=== PATIENT | male | born 1945 | race Caucasian/White ===

== ENCOUNTER 2017-10-10 19:00 | Emergency (ER) | payer MEDICARE ==
[~2017-10-10] VITALS: Ht 175.3 cm; Wt 104.1 kg
[2017-10-10] MEDS ORDERED: MECLIZINE CHEWABLE 25 MG TAB ONE (19:04)
[2017-10-10 19:07] VITALS: BP 157/76
[2017-10-10 19:33] LABS: BASOPHILS # (AUTO) 0.02 x10^3/uL (0-0.1); BASOPHILS % (AUTO) 0 % (0-1); EOSINOPHILS # (AUTO) 0.26 x10^3/uL (0-0.4); EOSINOPHILS % (AUTO) 3 % (1-7); LYMPHOCYTES # (AUTO) 1.37 x10^3/uL (1-3.4); LYMPHOCYTES % (AUTO) 16 % (22-44); MD NO; MEAN CORPUSCULAR HEMOGLOBIN 33.4 pg (27.5-34.5); MEAN CORPUSCULAR HGB CONC 34.7 g/dL (33.2-36.2); MEAN CORPUSCULAR VOLUME 96.2 fL (81-97); MEAN PLATELET VOLUME 8.5 fL (7.4-10.4); MONOCYTES % (AUTO) 6 % (2-9); NEUTROPHILS # (AUTO) 6.28 x10^3/uL (1.8-6.8); NEUTROPHILS % (AUTO) 75 % (42-75); PLATELET COUNT 144 x10^3/uL (130-400); RED BLOOD COUNT 4.76 x10^6/uL (4.38-5.82); RED CELL DISTRIBUTION WIDTH 13.3 % (9.4-14.8)
[2017-10-10 19:38] LABS: INTERNATIONAL NORMALIZED RATIO 1.03 (0.93-1.1); PROTHROMBIN TIME 10.7 Seconds (9.6-11.5)
[2017-10-10 19:39] LABS: ALANINE AMINOTRANSFERASE 22 U/L (12-78); ALBUMIN 3.8 g/dL (3.4-5.0); ANION GAP 7 mmol/L (5-15); CALCIUM 8.5 mg/dL (8.5-10.1); CHLORIDE 107 mmol/L (98-107); CREATININE 0.89 mg/dL (0.7-1.3)
[2017-10-10 19:42] LABS: ALKALINE PHOSPHATASE 75 U/L (45-117); BILIRUBIN,TOTAL 2.3 mg/dL (0.2-1.0); TOTAL PROTEIN 7.2 g/dL (6.4-8.2)
[2017-10-10] MEDS ORDERED: ENOXAPARIN 60 MG/0.6 ML ONE (20:23)
[2017-10-10] MEDS ORDERED: ENOXAPARIN 40 MG/0.4 ML ONE (20:23)
[2017-10-10] MEDS ORDERED: ENOXAPARIN 100 MG/ML SQ ONE (20:30)
== END 2017-10-10 20:50 | disposition home or self-care (01) ==
LOC: ED 20:40
DX: I82.412 Acute embolism and thrombosis of left femoral vein (principal); I82.432 Acute embolism and thrombosis of left popliteal vein; I10 Essential (primary) hypertension
CPT/HCPCS: 36415; 80053; 85025; 85610; 85730; 99284

== ENCOUNTER 2017-12-30 11:53 | Observation (INO) | payer MEDICARE ==
[~2017-12-30] VITALS: Ht 172.7 cm; Wt 100.6 kg
--- NOTE | 2017-12-30 11:58 | NUR ---
PT BIB EMS FOR RIGHT LEG PAIN. PER EMS, PT HAS HAD RT LEG PAIN FOR 2 MONTHS WITH INCREASE IN PAIN IN LAST TWO WEEKS. PER PT, "I AM HERE BECAUSE THE PAIN SPECIALIST TOLD ME TO HAVE MY PAIN MEDICATION LOOKED AT TO SEE WHY THEY AREN'T HELPING. NADN. ALL SAFETY MEASURES IN PLACE. PT CONNECTED TO NIBP AND CONTINOUS PULSE OX.
[2017-12-30] MEDS ORDERED: MORPHINE SULFATE 4 MG/ML, 1ML ONE (12:28)
[2017-12-30] MEDS ORDERED: MORPHINE SULFATE 4 MG/ML, 1ML IVPush PRN (12:30)
[2017-12-30] MEDS ORDERED: SODIUM CHLORIDE FLUSH 10ML SYR IVF ONE (12:30)
[2017-12-30 12:42] LABS: BASOPHILS # (AUTO) 0.04 x10^3/uL (0-0.1); BASOPHILS % (AUTO) 1 % (0-1); EOSINOPHILS # (AUTO) 0.11 x10^3/uL (0-0.4); EOSINOPHILS % (AUTO) 2 % (1-7); LYMPHOCYTES # (AUTO) 1.25 x10^3/uL (1-3.4); LYMPHOCYTES % (AUTO) 18 % (22-44); MD NO; MEAN CORPUSCULAR HEMOGLOBIN 34.1 pg (27.5-34.5); MEAN CORPUSCULAR HGB CONC 34.1 g/dL (33.2-36.2); MEAN CORPUSCULAR VOLUME 100.1 fL (81-97); MEAN PLATELET VOLUME 8.6 fL (7.4-10.4); MONOCYTES # (AUTO) 0.49 x10^3/uL (0.2-0.8); MONOCYTES % (AUTO) 7 % (2-9); NEUTROPHILS # (AUTO) 4.94 x10^3/uL (1.8-6.8); NEUTROPHILS % (AUTO) 72 % (42-75); PLATELET COUNT 148 x10^3/uL (130-400); RED BLOOD COUNT 4.59 x10^6/uL (4.38-5.82)
[2017-12-30 12:51] LABS: INTERNATIONAL NORMALIZED RATIO 1.04 (0.93-1.1); PROTHROMBIN TIME 10.8 Seconds (9.6-11.5)
[2017-12-30 12:54] LABS: ALBUMIN 3.6 g/dL (3.4-5.0); ANION GAP 7 mmol/L (5-15); CALCIUM 8.8 mg/dL (8.5-10.1); CHLORIDE 113 mmol/L (98-107); CREATININE 0.95 mg/dL (0.7-1.3)
--- NOTE | 2017-12-30 12:56 | NUR ---
WENT TO PROVIDE PT PAIN MEDICATION AND PIV PER EMAR AND MD ORDERS. PT DECLINES PIV AND PAIN MEDICATION AT THIS TIME. PT REQUESTES A PILLOW UNDER RIGHT LEG FOR PAIN RELIEF, PT STATES, "IF I PUT A PILLOW UNDER MY LEG AND I DON'T MOVE I HAVE NO PAIN." ASSISTED PT WITH PLACING PILLOW UNDER LEG. ALL SAFETY MEASURES IN PLACE. PT CONNECTED TO NIBP AND CONTINOUS PULSE OX. NO OTHER NEEDS REQUESTED AT THIS TIME.
[2017-12-30] MEDS ORDERED: FLUTICASONE NS (13:06)
[2017-12-30] MEDS ORDERED: ACETAMINOPHEN PO (13:06)
[2017-12-30] MEDS ORDERED: CODEIN PO (13:06)
[2017-12-30] MEDS ORDERED: ALLO300T PO (13:09)
[2017-12-30] MEDS ORDERED: [UNRECOGNIZED DRUG - OTHER] (13:09)
[2017-12-30] MEDS ORDERED: BENA1TAB10 PO (13:09)
[2017-12-30] MEDS ORDERED: APIX5TAB PO (13:09)
[2017-12-30] MEDS ORDERED: INDO50CA5 PO (13:09)
[2017-12-30] MEDS ORDERED: TAMS0.4C2 PO (13:09)
[2017-12-30] MEDS ORDERED: VOLTAREN TP (13:12)
--- NOTE | 2017-12-30 13:26 | NUR ---
BREAK RN - PT RESTING COMFORTABLY ON GURNEY. DENIES NEED FOR PAIN MEDICATION AT THIS TIME. PROVIDED WITH URINAL. ALL OTHER CONCERNS ADRESSED. NADN. PT AWAITING TO GO TO CT.
--- NOTE | 2017-12-30 14:12 | NUR ---
PT RESTING ON GURNEY. PT CONNECTED TO NIBP AND CONTINOUS PULSE OX. PT STATES, "I DON'T HAVE ANY PAIN UNLESS I MOVE. I HAD A LOT OF PAIN WHEN I MOVED AND WAS IN THE CT MACHINE." NO NEEDS REQUESTED AT THIS TIME. ALL SAFETY MEASURES IN PLACE. JULIO CESARN.
[2017-12-30] MEDS ORDERED: GABA300C10 PO (15:12)
--- NOTE | 2017-12-30 15:12 | NUR ---
PT STATES HE SEES [facility] THOR DORADO PA-C [phone] FAX [phone].
[2017-12-30] MEDS ORDERED: APAP/CODEINE 300/60MG TABLET PO PRN ×2 (16:00→21:00)
[2017-12-30] MEDS ORDERED: LABETALOL 5MG/ML, 20ML IVPush PRN (16:00)
[2017-12-30] MEDS ORDERED: ACETAMINOPHEN 325 MG TABLET PO PRN (16:00)
[2017-12-30] MEDS ORDERED: BISACODYL 10 MG SUPP PR PRN (16:00)
[2017-12-30] MEDS ORDERED: methylPREDNISolone 4mg DOSE PACK PO SCH (16:00)
[2017-12-30] MEDS ORDERED: ONDANSETRON 2MG/ML, 2ML IVPush PRN (16:00)
[2017-12-30] MEDS ORDERED: POLYETHYLENE GLYCOL 17 GM PACKET PO PRN (16:00)
[2017-12-30] MEDS ORDERED: DOCUSATE 100 MG CAPSULE PO PRN (16:00)
--- NOTE | 2017-12-30 16:23 | NUR ---
pt transported to floor on [facility] and left with all personal belongings.
[2017-12-30 17:11] VITALS: BP 131/81
[2017-12-30 20:05] VITALS: BP 129/78
[2017-12-30] MEDS: APIXABAN 5 MG TABLET PO SCH (21:00)
[2017-12-30] MEDS: GABAPENTIN 300 MG CAPSULE PO SCH (21:37)
[2017-12-30] MEDS: TAMSULOSIN 0.4 MG CAP.ER.24H PO SCH (21:37)
[2017-12-30] MEDS: SODIUM CHLORIDE FLUSH 10ML SYR IVF SCH (21:37)
[2017-12-30] MEDS ORDERED: APAP/CODEINE 300/30MG TABLET PO ONE (22:30)
[2017-12-31 01:11] VITALS: BP 131/69
[2017-12-31 07:47] VITALS: BP 104/59
[2017-12-31] MEDS: TAMSULOSIN 0.4 MG CAP.ER.24H PO SCH ×2 (08:51→20:48)
[2017-12-31] MEDS: CYCLOBENZAPRINE 10 MG TABLET PO PRN ×2 (08:51→20:49)
[2017-12-31] MEDS: BENAZEPRIL 20 MG TABLET PO SCH (08:52)
[2017-12-31] MEDS: ALLOPURINOL 300 MG TABLET PO SCH (08:52)
[2017-12-31] MEDS: APIXABAN 5 MG TABLET PO SCH ×2 (08:52→20:48)
[2017-12-31] MEDS: HYDROCHLOROTHIAZIDE 12.5 MG CAPSULE PO SCH (08:52)
[2017-12-31] MEDS: SODIUM CHLORIDE FLUSH 10ML SYR IVF SCH ×2 (08:56→20:49)
[2017-12-31] MEDS ORDERED: APIXABAN 5 MG TABLET PO SCH (09:00)
[2017-12-31] MEDS: LIDODERM 5% PATCH TD PRN (09:04)
[2017-12-31] MEDS: KETOROLAC 30 MG/1 ML IV PRN ×3 (09:04→23:00)
[2017-12-31 13:02] VITALS: BP 114/67
[2017-12-31 20:01] VITALS: BP 144/72
[2017-12-31] MEDS: GABAPENTIN 300 MG CAPSULE PO SCH (20:48)
[2018-01-01 01:12] VITALS: BP 126/72
[2018-01-01 07:42] VITALS: BP 118/64
[2018-01-01] MEDS ORDERED: LIDO700A20 TD (08:56)
[2018-01-01] MEDS ORDERED: CYCL-259 PO (08:56)
[2018-01-01] MEDS ORDERED: METH4TAB2 PO (08:56)
[2018-01-01] MEDS: BENAZEPRIL 20 MG TABLET PO SCH (09:00)
[2018-01-01] MEDS: APIXABAN 5 MG TABLET PO SCH (09:00)
[2018-01-01] MEDS: HYDROCHLOROTHIAZIDE 12.5 MG CAPSULE PO SCH (09:01)
[2018-01-01] MEDS: TAMSULOSIN 0.4 MG CAP.ER.24H PO SCH (09:01)
[2018-01-01] MEDS: ALLOPURINOL 300 MG TABLET PO SCH (09:01)
[2018-01-01] MEDS: SODIUM CHLORIDE FLUSH 10ML SYR IVF SCH (09:02)
[2018-01-01] MEDS: LIDODERM 5% PATCH TD PRN (09:22)
== END 2018-01-01 11:13 | disposition home or self-care (01) ==
LOC: ED 14:43 → INTOOBSV 15:10 → EDIP 15:10 → OBSVTOIN 15:10 → 3NE 16:10
PROVIDERS: ADMIT Hospitalist; ATTEND Hospitalist
DX: M54.5 Low back pain (principal); I82.403 Acute embolism and thrombosis of unspecified deep veins of lower extremity, bilateral; M79.651 Pain in right thigh; I11.9 Hypertensive heart disease without heart failure; M10.9 Gout, unspecified; R26.2 Difficulty in walking, not elsewhere classified; Z79.01 Long term (current) use of anticoagulants; Z79.899 Other long term (current) drug therapy
CPT/HCPCS: 36415; 72131; 72158; 72192; 80048; 82040; 85025; 85610; 85730; 93971; 96374; 96376; 97161; 97166; 99285; G0378; J1885; J7509; 96375

== ENCOUNTER 2019-08-14 13:26 | Outpatient (CLI) | payer MEDICARE ==
[~2019-08-14 13:26] MED LIST: ACETAMINOPHEN PO; ALLO300T PO; APIX5TAB PO; BENA1TAB10 PO; CODEIN PO; CYCL-259 PO; FLUTICASONE NS; GABA300C10 PO; INDO50CA15 PO; LIDO700A20 TD; METH4TAB2 PO; TAMS0.4C2 PO; VOLTAREN TP; [UNRECOGNIZED DRUG - OTHER]
[2019-08-14] MEDS ORDERED: ACET-1600 PO (14:42)
[2019-08-14] MEDS ORDERED: BENA20TA54 PO (14:42)
[2019-08-14 14:54] LABS: BASOPHILS # (AUTO) 0.03 x10^3/uL (0-0.1); BASOPHILS % (AUTO) 0 % (0-1); EOSINOPHILS # (AUTO) 0.17 x10^3/uL (0-0.4); EOSINOPHILS % (AUTO) 3 % (1-7); LYMPHOCYTES # (AUTO) 1.23 x10^3/uL (1-3.4); LYMPHOCYTES % (AUTO) 18 % (22-44); MD NO; MEAN CORPUSCULAR HEMOGLOBIN 33.3 pg (27.5-34.5); MEAN CORPUSCULAR HGB CONC 33.2 g/dL (33.2-36.2); MEAN CORPUSCULAR VOLUME 100.5 fL (81-97); MEAN PLATELET VOLUME 8.2 fL (7.4-10.4); MONOCYTES # (AUTO) 0.37 x10^3/uL (0.2-0.8); MONOCYTES % (AUTO) 6 % (2-9); NEUTROPHILS # (AUTO) 4.97 x10^3/uL (1.8-6.8); NEUTROPHILS % (AUTO) 74 % (42-75); PLATELET COUNT 130 x10^3/uL (130-400); RED BLOOD COUNT 4.49 x10^6/uL (4.38-5.82); RED CELL DISTRIBUTION WIDTH 14.4 % (9.4-14.8)
[2019-08-14 15:05] LABS: ALANINE AMINOTRANSFERASE 19 U/L (12-78); ALBUMIN 3.7 g/dL (3.4-5.0); ANION GAP 3 mmol/L (5-15); CALCIUM 8.9 mg/dL (8.5-10.1); CHLORIDE 113 mmol/L (98-107); CREATININE 0.84 mg/dL (0.7-1.3); INTERNATIONAL NORMALIZED RATIO 1.04 (0.93-1.1)
[2019-08-14 15:07] LABS: ALKALINE PHOSPHATASE 85 U/L (45-117); BILIRUBIN,TOTAL 2.6 mg/dL (0.2-1.0); TOTAL PROTEIN 6.6 g/dL (6.4-8.2)
== END 2019-08-14 23:59 | disposition home or self-care (01) ==
LOC: STAR 13:26
PROVIDERS: ATTEND Orthopaedic Surgery
DX: Z01.818 Encounter for other preprocedural examination (principal); M25.552 Pain in left hip; R94.31 Abnormal electrocardiogram [ECG] [EKG]
CPT/HCPCS: 36415; 80053; 83036; 85025; 85610; 85730; 87081; 87635; 87806; 93005; G0475

== ENCOUNTER 2019-08-20 09:16 | Observation (INO) | payer MEDICARE ==
[~2019-08-20] VITALS: Ht 172.7 cm; Wt 105.5 kg
[~2019-08-20 09:16] MED LIST changes: +ACET-1600 PO; +BENA20TA54 PO
[2019-08-20] MEDS ORDERED: LACTATED RINGERS 1,000 ML IV SCH (09:37)
[2019-08-20] MEDS ORDERED: CHLORHEXIDINE 15 ML UDC MM STA (09:38)
[2019-08-20] MEDS ORDERED: TRANEXAMIC ACID 100 MG/ML, 10ML ONE (11:22)
[2019-08-20] MEDS ORDERED: ROPIvacaine/PF 0.2%, 20 ML ONE (11:22)
[2019-08-20] MEDS ORDERED: KETOROLAC 60 MG/2 ML ONE (11:22)
[2019-08-20] MEDS ORDERED: SODIUM CHLORIDE 0.9% 50 ML ONE (11:23)
[2019-08-20] MEDS ORDERED: EPINEPHRINE 1 MG/ML, 1ML ONE (11:24)
[2019-08-20] MEDS ORDERED: HYDROmorphone 1 MG/ML, 1ML INJ IVPush PRN (11:30)
[2019-08-20] MEDS ORDERED: SENNA/DOCUSATE TABLET PO PRN (11:30)
[2019-08-20] MEDS ORDERED: MAGNESIUM HYDROXIDE 8%, 30ML UDC PO PRN (11:30)
[2019-08-20] MEDS ORDERED: PSYLLIUM PACKET PO PRN (11:30)
[2019-08-20] MEDS ORDERED: ACETAMINOPHEN 650 MG/20.3 ML UDC PO PRN (11:30)
[2019-08-20] MEDS ORDERED: DIPHENHYDRAMINE 50 MG CAPSULE PO PRN (11:30)
[2019-08-20] MEDS ORDERED: ONDANSETRON 4 MG TABLET PO PRN (11:30)
[2019-08-20] MEDS ORDERED: ALUMINUM/MAG/SIMETHICONE 30 ML UDC PO PRN (11:30)
[2019-08-20] MEDS ORDERED: HYDROcodone/APAP 5/325 TABLET PO PRN (11:30)
[2019-08-20] MEDS ORDERED: ONDANSETRON 2MG/ML, 2ML IVPush PRN ×2 (11:30→12:30)
[2019-08-20] MEDS ORDERED: DIPHENHYDRAMINE 50 MG/ML, 1ML IVPush PRN (11:30)
[2019-08-20] MEDS ORDERED: MIDAZOLAM 1 MG/ML, 2ML ONE (11:33)
[2019-08-20] MEDS ORDERED: FENTANYL PF 250 MCG/5ML ONE (11:34)
[2019-08-20] MEDS ORDERED: ONDANSETRON 2MG/ML, 2ML ONE (12:01)
[2019-08-20] MEDS ORDERED: ROCURONIUM 10MG/ML,5ML ONE (12:01)
[2019-08-20] MEDS ORDERED: SUCCINYLCHOLINE 20 MG/ML, 10ML ONE (12:01)
[2019-08-20] MEDS ORDERED: PROPOFOL 10 MG/ML, 20ML ONE (12:01)
[2019-08-20] MEDS ORDERED: CEFAZOLIN 1,000 MG ONE (12:01)
[2019-08-20] MEDS ORDERED: LABETALOL 5MG/ML, 20ML IV PRN (12:30)
[2019-08-20] MEDS ORDERED: METOCLOPRAMIDE 5 MG/ML, 2ML IV PRN (12:30)
[2019-08-20] MEDS ORDERED: PROMETHAZINE 25 MG/ML, 1ML IV PRN (12:30)
[2019-08-20] MEDS ORDERED: MEPERIDINE/PF 25MG/0.5ML IVPush PRN (12:30)
[2019-08-20] MEDS ORDERED: OXYcodone 5 MG/5 ML ORAL.SOL UDC PO PRN (12:30)
[2019-08-20] MEDS ORDERED: KETOROLAC 30 MG/1 ML IV PRN (12:30)
[2019-08-20] MEDS ORDERED: hydrALAzine 20 MG/ML, 1ML IV PRN (12:30)
[2019-08-20] MEDS ORDERED: DIAZEPAM 5 MG/ML, 2ML IV PRN ×2 (12:30)
[2019-08-20] MEDS ORDERED: ALBUTEROL SULFATE 2.5 MG/3 ML NPPB PRN (12:30)
[2019-08-20] MEDS: FENTANYL PF 100 MCG/2ML IV PRN ×3 (13:30→14:03)
[2019-08-20] MEDS ORDERED: OXYcodone 5 MG/5 ML ORAL.SOL UDC ONE (13:38)
[2019-08-20] MEDS ORDERED: FENTANYL PF 100 MCG/2ML ONE (13:38)
[2019-08-20] MEDS ORDERED: TRANEXAMIC ACID 1,000 MG in SODIUM CHLORIDE 0.9% 100 ML IVPB ONE (13:45)
[2019-08-20] MEDS ORDERED: HYDROmorphone 1 MG/ML, 1ML INJ ONE (14:12)
[2019-08-20] MEDS: HYDROmorphone 1 MG/ML, 1ML INJ IV PRN ×2 (14:18→14:26)
[2019-08-20 15:36] LABS: INTERNATIONAL NORMALIZED RATIO 1.07 (0.93-1.1); PROTHROMBIN TIME 11.3 Seconds (9.6-11.5)
[2019-08-20] MEDS: KETOROLAC 30 MG/1 ML IV SCH (15:56)
[2019-08-20] MEDS: CEFAZOLIN PMX 1GM/50ML 50 ML IVPB SCH (16:22)
[2019-08-20] MEDS: D5%-0.45NACL+KCL 20MEQ 1,000 ML IV SCH (16:22)
[2019-08-20] MEDS: GABAPENTIN 300 MG CAPSULE PO SCH ×2 (17:41→21:26)
[2019-08-20 19:59] VITALS: BP 120/70
[2019-08-20] MEDS ORDERED: FLUTICASONE NASAL SPRAY 16GM NAS SCH (21:00)
[2019-08-20] MEDS: DOCUSATE 100 MG CAPSULE PO SCH (21:26)
[2019-08-20] MEDS: TAMSULOSIN 0.4 MG CAP.ER.24H PO SCH (21:26)
[2019-08-20 23:35] VITALS: BP 132/72
[2019-08-21] MEDS: KETOROLAC 30 MG/1 ML IV SCH ×2 (00:07→07:45)
[2019-08-21] MEDS: CEFAZOLIN PMX 1GM/50ML 50 ML IVPB SCH (00:07)
[2019-08-21] MEDS: D5%-0.45NACL+KCL 20MEQ 1,000 ML IV SCH ×2 (02:27→11:00)
[2019-08-21 04:21] VITALS: BP 126/70
[2019-08-21 05:22] LABS: INTERNATIONAL NORMALIZED RATIO 1.08 (0.93-1.1); PROTHROMBIN TIME 11.5 Seconds (9.6-11.5)
[2019-08-21] MEDS: GABAPENTIN 300 MG CAPSULE PO SCH ×2 (05:23→11:05)
[2019-08-21] MEDS ORDERED: DEXAMETHASONE 4 MG/ML, 1ML IVPush SCH (06:00)
[2019-08-21 07:20] VITALS: BP 131/70
[2019-08-21] MEDS: DOCUSATE 100 MG CAPSULE PO SCH (07:46)
[2019-08-21] MEDS: TAMSULOSIN 0.4 MG CAP.ER.24H PO SCH (07:46)
[2019-08-21] MEDS ORDERED: ALLOPURINOL 300 MG TABLET PO SCH (09:00)
[2019-08-21] MEDS ORDERED: BENAZEPRIL 20 MG TABLET PO SCH (09:00)
[2019-08-21] MEDS ORDERED: WARFARIN 5 MG TABLET PO-COUM ONE (09:00)
[2019-08-21] MEDS ORDERED: WARF2.5T74 PO (11:38)
== END 2019-08-21 12:05 | disposition home or self-care (01) ==
LOC: OUT 09:16 → ORIP 11:25 → 4NE 14:44 → DCLOUNGE 08-21 12:03
PROVIDERS: ADMIT Orthopaedic Surgery; ATTEND Orthopaedic Surgery
DX: M87.9 Osteonecrosis, unspecified (principal); M16.12 Unilateral primary osteoarthritis, left hip; I10 Essential (primary) hypertension; F17.200 Nicotine dependence, unspecified, uncomplicated; Z79.899 Other long term (current) drug therapy; Z86.718 Personal history of other venous thrombosis and embolism
CPT/HCPCS: 27130; 36415; 73502; 85014; 85018; 85610; 96365; 96366; 96375; 96376; 97110; 97161; 97165; C1713; C1776; G0378; J0171; J0330; J0690; J1100; J1170; J1885; J2250; J2405; J2704; J2795; J3010; J3480; J7120; 87635